=== PATIENT | female | born 1975 | race Caucasian/White ===

== ENCOUNTER 2021-02-03 01:08 | Emergency (ER) | payer MEDICAID ==
[2021-02-03] MEDS ORDERED: Sodium Chloride 0.9% 10 ML Syringe FLUSH PRN (01:33)
[2021-02-03] MEDS: Aspirin 81 MG Tab.Chew PO ONE (01:40)
--- NOTE | 2021-02-03 01:43 | EDM.PDOC ---
ED HPI GENERAL MEDICAL PROBLEM - General Chief Complaint: Cardiovascular Problem Stated Complaint: CHEST PAIN Time Seen by Provider: 02/03/21 01:31 Source of Information: Reports: Patient History Limitations: Reports: No Limitations - History of Present Illness INITIAL COMMENTS - FREE TEXT/NARRATIVE: Presents with substernal non-radiating chest tightness, onset 45 min ago. Pain was intermittent and has now resolved. No prior history of CAD. Denies SOB or cough. Has had costochondritis type pain in the past, this was different. Onset: Sudden Duration: Hour(s): (1) Location: Reports: Chest Quality: Reports: Dull Severity: Mild - Related Data Allergies Allergy/AdvReac Type Severity Reaction Status Date / Time bupropion [From Wellbutrin] Allergy Rash Verified 02/03/21 01:24 diclofenac [From Voltaren] Allergy Swelling Verified 02/03/21 01:24 prochlorperazine Allergy Anxiety Verified 02/03/21 01:24 [From Compazine] Home Meds: Home Meds ALPRAZolam [Xanax] 0.5 mg PO TID 02/03/21 [History] hydrOXYzine pamoate [Vistaril] 50 mg PO TID 02/03/21 [History] Past Medical History Cardiovascular History: Denies: CAD, High Cholesterol, Hypertension, [place] Psychiatric History: Reports: Anxiety ED ROS GENERAL - Review of Systems Review Of Systems: Comprehensive ROS is negative, except as noted in HPI. ED EXAM, GENERAL - Physical Exam Exam: See Below Exam Limited By: No Limitations General Appearance: Alert, WD/WN, No Apparent Distress Nose: Normal Inspection Throat/Mouth: No Airway Compromise Head: Atraumatic, Normocephalic Neck: Full Range of Motion Respiratory/Chest: No Respiratory Distress, Lungs Clear, Normal Breath Sounds, Chest Non-Tender Cardiovascular: Regular Rate, Rhythm, No Murmur GI/Abdominal: Soft, Non-Tender, No Distention Extremities: Normal Range of Motion, No Pedal Edema Neurological: Alert, Normal Cognition Psychiatric: Normal Affect, Normal Mood Skin Exam: Warm, Dry, Intact #1 Interpretation EKG Date: 02/03/21 Time: 01:31 Rhythm: NSR Rate (Beats/Min): 81 [place]: Normal P-Wave: Present QRS: Normal ST-T: Normal QT: Normal Comparison: NA - No Prior EKG Course - Vital Signs Last Recorded V/S: Last Vital Signs Temp 36.8 C 02/03/21 01:10 Pulse 72 02/03/21 05:00 Resp 17 02/03/21 05:00 BP 92/57 L 02/03/21 05:00 Pulse Ox 97 02/03/21 05:00 - Orders/Labs/Meds Orders: Active Orders 24 hr Category Date Time Status EKG Documentation Completion [RC] ASDIRECTED Care 02/03/21 01:24 Active CXR [Chest 1V Frontal] [CR] Stat Exams 02/03/21 01:30 Taken Sodium Chloride 0.9% [Saline Flush] Med 02/03/21 01:33 Active 10 ml FLUSH ASDIRECTED PRN EKG 12 Lead [EK] Stat Ther 02/03/21 01:24 Ordered Medication Orders Sodium Chloride (Sodium Chloride 0.9% 10 Ml Syringe) 10 ml FLUSH ASDIRECTED PRN PRN Reason: Keep Vein Open Labs: Laboratory Tests 02/03/21 02/03/21 02/03/21 Range/Units 01:15 01:15 01:15 WBC 9.7 (3.0-10.3) x10-3/uL RBC 4.39 (3.60-5.20) x10(6)uL Hgb 13.7 (11.4-15.5) g/dL Hct 41.2 (34.2-48.2) % MCV 93.8 (76.7-100.5) fL MCH 31.2 (23.9-33.9) pg MCHC 33.3 (31.9-34.8) g/dL RDW 14.3 (12.3-16.5) % Plt Count 235 (151-488) x10(3)uL MPV 8.2 (7.1-12.4) fL Neut % (Auto) 73.6 (30.8-76.2) % Lymph % (Auto) 18.4 (18.4-52.1) % Clarke % (Auto) 5.4 (4.4-15.7) % Eos % (Auto) 2.2 (0.6-8.1) % Baso % (Auto) 0.4 (0.2-1.5) % Neut # (Auto) 7.1 H (1.5-6.3) x10-3/uL Lymph # (Auto) 1.8 (1.0-4.4) x10-3/uL Clarke # (Auto) 0.5 (0.3-1.0) x10-3/uL Eos # (Auto) 0.2 (0.0-0.8) x10-3/uL Baso # (Auto) 0.0 (0.0-0.1) x10-3/uL Sodium 138 (135-145) mmol/L Potassium 4.0 (3.5-5.3) mmol/L Chloride 101 (100-110) mmol/L Carbon Dioxide 28 (21-32) mmol/L BUN 15 (7-18) mg/dL Creatinine 0.7 (0.55-1.02) mg/dL Est Cr Clr Drug Dosing 87.64 mL/min Estimated GFR (MDRD) > 60 (>60) BUN/Creatinine Ratio 21.4 H (9-20) Glucose 128 H (80-116) mg/dL Calcium 8.0 L (8.6-10.2) mg/dL Total Bilirubin 0.2 (0.1-1.3) mg/dL AST 10 (5-25) IU/L ALT 18 (12-36) U/L Alkaline Phosphatase 51 L (56-112) IU/L Troponin I < 4.0 L (4.0-60.3) pg/mL Total Protein 6.7 (6.0-8.0) g/dL Albumin 3.4 L (3.5-5.2) g/dL Globulin 3.3 g/dL Albumin/Globulin Ratio 1.0 // Range/Units 04:15 WBC (3.0-10.3) x10-3/uL RBC (3.60-5.20) x10(6)uL Hgb (11.4-15.5) g/dL Hct (34.2-48.2) % MCV (76.7-100.5) fL MCH (23.9-33.9) pg MCHC (31.9-34.8) g/dL RDW (12.3-16.5) % Plt Count (151-488) x10(3)uL MPV (7.1-12.4) fL Neut % (Auto) (30.8-76.2) % Lymph % (Auto) (18.4-52.1) % Clarke % (Auto) (4.4-15.7) % Eos % (Auto) (0.6-8.1) % Baso % (Auto) (0.2-1.5) % Neut # (Auto) (1.5-6.3) x10-3/uL Lymph # (Auto) (1.0-4.4) x10-3/uL Clarke # (Auto) (0.3-1.0) x10-3/uL Eos # (Auto) (0.0-0.8) x10-3/uL Baso # (Auto) (0.0-0.1) x10-3/uL Sodium (135-145) mmol/L Potassium (3.5-5.3) mmol/L Chloride (100-110) mmol/L Carbon Dioxide (21-32) mmol/L BUN (7-18) mg/dL Creatinine (0.55-1.02) mg/dL Est Cr Clr Drug Dosing mL/min Estimated GFR (MDRD) (>60) BUN/Creatinine Ratio (9-20) Glucose (80-116) mg/dL Calcium (8.6-10.2) mg/dL Total Bilirubin (0.1-1.3) mg/dL AST (5-25) IU/L ALT (12-36) U/L Alkaline Phosphatase (56-112) IU/L Troponin I 4.1 (4.0-60.3) pg/mL Total Protein (6.0-8.0) g/dL Albumin (3.5-5.2) g/dL Globulin g/dL Albumin/Globulin Ratio Meds: Medications Generic Name Dose Route Start Last Admin Trade Name Freq PRN Reason Stop Dose Admin Sodium Chloride 10 ml 02/03/21 01:33 Sodium Chloride 0.9% 10 Ml Syringe FLUSH ASDIRECTED PRN Keep Vein Open Discontinued Medications Generic Name Dose Route Start Last Admin Trade Name Freq PRN Reason Stop Dose Admin Aspirin 324 mg 02/03/21 01:33 02/03/21 01:40 Aspirin 81 Mg Tab.Chew PO 02/03/21 01:34 324 mg ONETIME ONE Administration - Radiology Interpretation Free Text/Narrative:: CXR: No acute process. (ED provider interpretation) - Re-Assessments/Exams Free Text/Narrative Re-Assessment/Exam: 02/03/21 05:26 EKG normal, Troponins negative x 2, no recurrence of chest pain. Departure - Departure Time of Disposition: :27 Disposition: Home, Self-Care 01 Condition: Good Clinical Impression: Atypical chest pain Instructions: Nonspecific Chest Pain, Adult, [id number] Forms: ED Department Discharge Additional Instructions: Follow up with your primary physician in 3-4 days. Return to the ER if symptoms recur or worsen. Sepsis Event Note (ED) - Focused Exam Vital Signs: Vital Signs Temp Pulse Resp BP Pulse Ox 02/03/21 05:00 72 17 92/57 L 97 02/03/21 04:00 61 18 100/58 L 97 02/03/21 03:30 59 L 18 99/64 97 02/03/21 03:00 58 L 18 104/60 98 02/03/21 02:30 67 17 99/61 95 02/03/21 02:00 76 18 108/67 97 02/03/21 01:45 83 17 125/73 99 02/03/21 01:30 92 18 116/76 100 02/03/21 01:15 91 21 H 126/74 99 02/03/21 01:10 36.8 C 84 18 135/76 100 - My Orders Last 24 Hours: My Active Orders 02/03/21 01:24 EKG Documentation Completion [RC] ASDIRECTED EKG 12 Lead [EK] Stat 02/03/21 01:30 CXR [Chest 1V Frontal] [CR] Stat 02/03/21 01:33 Sodium Chloride 0.9% [Saline Flush] 10 ml FLUSH ASDIRECTED PRN - Assessment/Plan Last 24 Hours: My Active Orders 02/03/21 01:24 EKG Documentation Completion [RC] ASDIRECTED EKG 12 Lead [EK] Stat 02/03/21 01:30 CXR [Chest 1V Frontal] [CR] Stat 02/03/21 01:33 Sodium Chloride 0.9% [Saline Flush] 10 ml FLUSH ASDIRECTED PRN
--- NOTE | 2021-02-05 10:58 | CR ---
INDICATION: Chest pain. CHEST, ONE VIEW: Portable AP upright view of the chest 02/03/21 - no comparisons. Overlying EKG leads are noted. The heart is normal in size and shape. Mediastinum is unremarkable. Minimal dextroconvex scoliosis upper thoracic spine may be present. A definite active infiltrate or effusion was not identified. IMPRESSION: No acute process. MTDD
== END 2021-02-03 05:47 | disposition home or self-care (01) ==
LOC: FB.ED 01:08
DX: R07.89 Other chest pain (principal); Z88.8 Allergy status to other drugs, medicaments and biological substances
CPT/HCPCS: 36415; 71045; 80053; 84484; 85025; 93005; 99285; A9270

== ENCOUNTER 2023-04-23 15:10 | Emergency (ER) | payer MEDICAID ==
[2023-04-23 16:31] VITALS: BP 114/69; PULSE 79
== END 2023-04-23 16:20 | disposition home or self-care (01) ==
LOC: FB.ED 15:10
DX: R00.2 Palpitations (principal); F17.290 Nicotine dependence, other tobacco product, uncomplicated; Z88.8 Allergy status to other drugs, medicaments and biological substances; Z79.899 Other long term (current) drug therapy
CPT/HCPCS: 93005; 93010; 99283; 99284

== ENCOUNTER 2024-12-05 09:37 | Emergency (ER) | payer MEDICAID ==
[2024-12-05 10:02] LABS: BASOPHILS PERCENT AUTO 0.5 % (0.2-1.5); EOSINOPHILS ABSOLUTE AUTO 0.1 x10-3/uL (0.0-0.8); EOSINOPHILS PERCENT AUTO 1.5 % (0.6-8.1); HEMOGLOBIN 14.5 g/dL (11.4-15.5); LYMPHOCYTES ABSOLUTE AUTO 1.2 x10-3/uL (1.0-4.4); LYMPHOCYTES PERCENT AUTO 17.2 % (18.4-52.1); MEAN CORPUSCULAR HEMOGLOBIN 32.1 pg (23.9-33.9); MEAN CORPUSCULAR HGB CONC 34.6 g/dL (31.9-34.8); MEAN CORPUSCULAR VOLUME 92.9 fL (76.7-100.5); MONOCYTES ABSOLUTE AUTO 0.3 x10-3/uL (0.3-1.0); MONOCYTES PERCENT AUTO 4.8 % (4.4-15.7); NEUTROPHILS ABSOLUTE AUTO 5.4 x10-3/uL (1.5-6.3); PLATELET COUNT,PLT 232 x10(3)uL (151-488); RED BLOOD CELL COUNT 4.52 x10(6)uL (3.60-5.20); RED CELL DISTRIBUTION WIDTH 14.2 % (12.3-16.5); WHITE BLOOD CELL COUNT,WBC 7.1 x10-3/uL (3.0-10.3)
[2024-12-05 10:07] LABS: BLOOD UREA NITROGEN,BUN 18 mg/dL (7-18); BUN/CREATININE RATIO 25.7 (9-20); CARBON DIOXIDE,CO2 27 mmol/L (21-32); CHLORIDE,CL 104 mmol/L (100-110); CREATININE 0.7 mg/dL (0.55-1.02); EST CRCL DRUG DOSING (CG) 83.95 mL/min; ESTIMATED GFR 106 mL/min (>60); GLUCOSE RANDOM 86 mg/dL (80-116); POTASSIUM,K 3.5 mmol/L (3.5-5.3); SODIUM,NA 138 mmol/L (135-145)
[2024-12-05 10:12] LABS: A/G RATIO 1.2; ALANINE AMINOTRANSFERASE,ALT 8 U/L (12-36); ALBUMIN 3.8 g/dL (3.5-5.2); ALKALINE PHOSPHATASE 48 IU/L (56-112); ASPARTATE AMNIOTRANSFERASE,AST 10 IU/L (5-25); BILIRUBIN TOTAL 0.6 mg/dL (0.1-1.3); PROTEIN TOTAL,TP 6.9 g/dL (6.0-8.0)
== END 2024-12-05 10:25 | disposition home or self-care (01) ==
LOC: FB.ED 09:37
DX: R07.89 Other chest pain (principal); F17.210 Nicotine dependence, cigarettes, uncomplicated; Z90.710 Acquired absence of both cervix and uterus; Z88.6 Allergy status to analgesic agent; Z88.8 Allergy status to other drugs, medicaments and biological substances; Z79.82 Long term (current) use of aspirin
CPT/HCPCS: 36415; 71045; 80053; 84484; 85025; 93005; 93010; 99283; 99285